=== PATIENT | male | born 1955 | race Caucasian/White ===

== ENCOUNTER → 2019-11-05 17:52 | Outpatient (CLI) | payer OTHER, SELFPAY | PROVIDERS: PCP Family Medicine; Referring Provider Family Medicine; Visit Provider Family Medicine | DX: Z11.59 Encounter for screening for other viral diseases (principal) | CPT/HCPCS: 87635; G2023; U0003 ==

== ENCOUNTER 2024-05-16 08:26 | Day surgery (SDC) | payer MEDICARE, SELFPAY ==
[2024-05-16] VITALS (8 sets, daily range): BP systolic 104–143; BP diastolic 72–85; PULSE 63–76; RESP 16–18; TEMP 36.4–36.5; O2SAT 94–97; BMI 31.7
--- NOTE | 2024-05-16 | COLBX_PTH ---
PATIENT: ROSA HARRY LOC: EN U#:[id number] AGE/SX: 69/M ROOM: RE05/16/[address]: Dr. Ezra Dempsey DO : 1955 BED: DIS: 05/16/2024 SPEC #: [id number] RECD: 05/16/24 13:06 STATUS: ARRON ELDER #: [id number] [place]: 05/16/24 00:[address]: Ezra Dempsey DEPT: SURGICAL PATHOLOGY RECD BY: Hero Dumas ENTERED: 05/16/24 13:07 SP TYPE: COLON BX OTHR DR: Antonio Marrero, MINING ENGINEER-C Tissues: A - Cecum, NOS B - Cecum, NOS Procedures: Surgery Specimen Level IV HEADER OPERATION: Colonoscopy biopsy, polypectomy PRE-OP DIAGNOSIS: Encounter for screening for malignant neoplasm of colon TISSUE SUBMITTED: A- Cecal polyp biopsy, B- Cecal polyp MICROSCOPIC DIAGNOSIS A. Cecal polyp, biopsy: Fragments of tubular adenoma. B. Cecal polyp, polypectomy: Fragments of hyperplastic polyp. SJ.mr 05/17/2024 MICROSCOPIC DESCRIPTION Slides are reviewed. GROSS DESCRIPTION A. Received in fixative is one container labeled with the patient's name and designated Cecal polyp biopsy. The specimen consists of two irregular fragments of light bar soft tissue that in aggregate measure 0.7 x 0.2 x 0.2 cm. The specimen is totally submitted in one cassette. B. Received in fixative is one container labeled with the patient's name and designated Cecal polyp. The specimen consists of multiple irregular fragments of light bar soft tissue that in aggregate measure 1.6 x 0.4 x 0.3 cm. The specimen is totally submitted in one cassette. MODEST[place].mr 05/16/2024 TC:1 CPT:89021c5
--- NOTE | 2024-05-16 09:03 | PCM.PRE.AN2 ---
ASA Classification* ASA Classification ASA Classification: 2 Assessment & Plan Anesthesia* Anesthesia Assessment Anesthesia Assessment: Discussed sedation and/or anesthesia options, risks, benefits, and alternatives with patient/parents/legal guardian/POA. Questions invited. The patient/parents/legal guardian/POA seems to understand and agrees to proceed with anesthesia plan. Reviewed the physical assessment, medical history, allergy history and patient home medications list prior to surgery/procedure/anesthetic and documented any changes. Performed airway and anesthesia risk assessments. 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 When Was Last Pacemaker Check QUESTION #4 FULL TEXT: You/Your Family Experience fever (hyperthermia) with Anesthesia Last Oral Intake Last Oral intake: Last Oral Intake NPO since 05:00 05/16/24 08:52 Meds taken in AM with sips of No 05/16/24 08:52 water? Meds patient instructed to take am of surgery PONV PONV - service restorer emergency: PONV - service restorer emergency Female No 05/14/24 13:44 HX of Motion Sickness No 05/14/24 13:44 HX of N/V After Surgery No 05/14/24 13:44 Non-Smoker Yes 05/14/24 13:44 Duration of Surgery greater No 05/14/24 13:44 than 60 minutes Number of Risk Factors 1 05/14/24 13:44 PONV Score Low Risk 05/14/24 13:44 Height & Weight Height & Weight: Anesthesia: Height & Weight Height 5 ft 7 in 05/16/24 08:52 Weight: 92 kg 05/16/24 08:52 Body Mass Index (BMI) 31.7 05/16/24 08:52 Respiratory Assessment Respiratory Assessment - service restorer emergency: Respiratory Tract Infection Hx - service restorer emergency Hx Respiratory Tract Infection No 05/14/24 13:44 STOP Sleep Apnea STOP Sleep Apnea - service restorer emergency: STOP Sleep Apnea - service restorer emergency Hx Hypertension No 05/14/24 13:44 Hx Sleep Apnea No 05/14/24 13:44 CPAP BIPAP Do you snore loudly (louder No 05/14/24 13:44 than talking or can be heard Do you often feel tired/ No 05/14/24 13:44 fatigued/ sleepy during daytime? Has anyone observed you stop No 05/14/24 13:44 breathing during sleep? STOP Results Negative 05/14/24 13:44 QUESTION #5 FULL TEXT : Do you snore loudly (louder than talking or can be heard through closed doors)? 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 Specify any problems Hx of Preganancy in last 3 N/A 05/14/24 13:44 Months Nurse Filling Out Transfusion DSCHRIBER 05/14/24 13:44 & Questions: Date: 05/14/24 05/14/24 13:44 Time: 13:45 05/14/24 13:44 Patient unable to answer at this time (ie. confused, unrespo /Reproduction History /Reproductive History - service restorer emergency: /Reproductive Hx- service restorer emergency Hx Now No 05/14/24 13:44 Gestational Age (in weeks): EDC: Hx Hx Para Hx Section SAB No 05/14/24 13:44 [facility] Medical History Tinnitus of right ear Loss of hearing Wears glasses Alcohol use Arthritis Fatty liver Back pain Vertigo History of diverticulitis Heartburn Cigar smoker History of pain when walking Leg cramps GERD (gastroesophageal reflux disease) Personal history of colonic polyps Home Medications ?Medication ?Instructions ?Recorded ?Last Taken ?Type desloratadine 5 mg tablet 5 mg PO QDAY PRN allergy symptoms 03/09/24 Unknown History (Clarinex) epinephrine 0.3 mg/0.3 mL 0.3 mg IM ONCE 03/09/24 Unknown History injection, auto-injector (EpiPen) ascorbic acid (vitamin C) 1,000 mg 1,000 mg PO DAILY 05/14/24 Unknown History tablet,extended release (C Complex) saw palmetto 450 mg capsule 450 mg PO DAILY 05/14/24 Unknown History Allergy/AdvReac Type Severity Reaction Status Date / Time hornet venom Allergy Severe Anaphylaxis Verified 05/16/24 08:51 dog dander AdvReac Intermediate Other Verified 05/16/24 08:51 feathers AdvReac Intermediate Other Verified 05/16/24 08:51 Sulfa (Sulfonamide AdvReac Intermediate Nausea/Vom/ Verified 05/16/24 08:51 Antibiotics) (sulfa drugs) Diarrhea Surgical History (Updated 05/14/24 @ 13:50 by Lani Judd) History of wisdom tooth extraction History of meniscectomy of right knee Hx of vasectomy History of esophagogastroduodenoscopy Hx of colonoscopy Social History (Updated 03/09/24 @ 08:22 by Tracey Pinzon) household members: spouse current occupational status: retired Smoking Status: Current some day smoker tobacco type: cigars alcohol intake: current alcohol intake frequency: a few times a week substance use type: does not use Review of Systems (Anesthesia) ROS Narrative System reviewed and no additional complaints, except as documented.
--- NOTE | 2024-05-16 09:55 | PCM.HP.STD ---
HPI - General General Date of Admission: 05/16/24 Date of Service: 05/16/24 Chief Complaint: History of polyps HPI Narrative ROSA HARRY, is a 69 M who presents today for surveillance colonoscopy. His last colonoscopy back in 2019 where he had a couple adenomatous polyps removed. He is not having any abdominal pain, cramping, chest pain or shortness of breath. Overall he is in pretty good health. [facility] Medical History Tinnitus of right ear Loss of hearing Wears glasses Alcohol use Arthritis Fatty liver Back pain Vertigo History of diverticulitis Heartburn Cigar smoker History of pain when walking Leg cramps GERD (gastroesophageal reflux disease) Personal history of colonic polyps Home Medications ?Medication ?Instructions ?Recorded ?Last Taken ?Type desloratadine 5 mg tablet 5 mg PO QDAY PRN allergy symptoms 03/09/24 Unknown History (Clarinex) epinephrine 0.3 mg/0.3 mL 0.3 mg IM ONCE 03/09/24 Unknown History injection, auto-injector (EpiPen) ascorbic acid (vitamin C) 1,000 mg 1,000 mg PO DAILY 05/14/24 Unknown History tablet,extended release (C Complex) saw palmetto 450 mg capsule 450 mg PO DAILY 05/14/24 Unknown History Allergy/AdvReac Type Severity Reaction Status Date / Time hornet venom Allergy Severe Anaphylaxis Verified 05/16/24 08:51 dog dander AdvReac Intermediate Other Verified 05/16/24 08:51 feathers AdvReac Intermediate Other Verified 05/16/24 08:51 Sulfa (Sulfonamide AdvReac Intermediate Nausea/Vom/ Verified 05/16/24 08:51 Antibiotics) (sulfa drugs) Diarrhea Surgical History History of wisdom tooth extraction History of meniscectomy of right knee Hx of vasectomy History of esophagogastroduodenoscopy Hx of colonoscopy Social History household members: spouse current occupational status: retired Smoking Status: Current some day smoker tobacco type: cigars alcohol intake: current alcohol intake frequency: a few times a week substance use type: does not use ROS Constitutional Constitutional: Denies fatigue, fever(s), poor appetite, weight gain or weight loss Gastrointestinal Gastrointestinal: Denies belching, bloating, change in bowel habits, change in stool character, chewing difficulty, coffee ground emesis, constipation, cramping, diarrhea, dyspepsia, dysphagia, early satiety, excessive flatus, fecal incontinence, heartburn, hematemesis, hematochezia, hemorrhoids, loose stools, melena, nausea, odynophagia, rectal bleeding, tenesmus, vomiting or weight changes Vital Signs Vital Signs Vital Signs: 05/16/24 08:52 05/16/24 08:52 05/16/24 09:05 Temperature 97.6 F L 97.6 F L Temperature Source Temporal Pulse Rate 75 75 Respiratory Rate 18 18 Respiratory Pattern Normal Blood Pressure 143/85 H 143/85 H Blood Pressure Mean 104 Blood Pressure Source Monitor Blood Pressure Position Sitting Blood Pressure Location Left Arm Pulse Ox 97 97 Oxygen Delivery Method Room Air Room Air Weight Weight: 202 lb 13.204 oz Body Mass Index (BMI) 31.7 Physical Exam Const alert, oriented x3, no apparent distress and healthy appearing General Appearance: cooperative GI normal to inspection, nondistended, normoactive bowel sounds, soft to palpation, non-tender and non-distended Percussion: normal to percussion Rectal Exam: deferred Assessment & Plan Assessment/Plan (1) Encounter for screening for malignant neoplasm of colon: PLAN: He was explained alternative, risk, benefits include not withstanding bleeding, infection, sepsis, perforation, need for emergent urgent . He will have an ASA 3.
--- NOTE | 2024-05-16 10:27 | OP.COLON_ITS ---
Patient Name: Tristin Baird Procedure Date: 05/16/2024 10:00 AM Date of : 1955 Age: 69 Procedure: Colonoscopy Indications: High risk colon cancer surveillance: Personal history of colonic polyps Providers: Ezra Dempsey DO Referring MD: Cale Pinzon Medicines: Monitored Anesthesia Care Patient Profile: This is a 69 year old male. Refer to note in patient chart for documentation of history and physical. Last Colonoscopy: several years ago. Complications: No immediate complications. Procedure: Pre-Anesthesia Assessment: - Prior to the procedure, a History and Physical was performed, and patient medications and allergies were reviewed. The patient is competent. The risks and benefits of the procedure and the sedation options and risks were discussed with the patient. All questions were answered and informed consent was obtained. Patient identification and proposed procedure were verified by the physician in the pre-procedure area. Mental Status Examination: alert and oriented. Airway Examination: normal oropharyngeal airway and neck mobility. Respiratory Examination: clear to auscultation. CV Examination: normal. Prophylactic Antibiotics: The patient does not require prophylactic antibiotics. Prior Anticoagulants: The patient has taken no anticoagulant or antiplatelet agents except for NSAID medication. ASA Grade Assessment: II - A patient with mild systemic disease. After reviewing the risks and benefits, the patient was deemed in satisfactory condition to undergo the procedure. The anesthesia plan was to use monitored anesthesia care (MAC). Immediately prior to administration of medications, the patient was re-assessed for adequacy to receive sedatives. The heart rate, respiratory rate, oxygen saturations, blood pressure, adequacy of pulmonary ventilation, and response to care were monitored throughout the procedure. The physical status of the patient was re-assessed after the procedure. After I obtained informed consent, the scope was passed under direct vision. Throughout the procedure, the patient's blood pressure, pulse, and oxygen saturations were monitored continuously. The Colonoscope was introduced through the anus and advanced to the cecum, identified by appendiceal orifice and ileocecal valve. The colonoscopy was performed without difficulty. The patient tolerated the procedure well. The quality of the bowel preparation was adequate. The ileocecal valve, appendiceal orifice, and rectum were photographed. Scope In: 10:07:55 AM Scope Withdrawal Time 0 hours 11 minutes 10 seconds Scope Out: 10:21:32 AM Total Procedure Duration Time 0 hours 13 minutes 37 seconds Findings: The perianal and digital rectal examinations were normal. Multiple small and large-mouthed diverticula were found in the recto-sigmoid colon, sigmoid colon, descending colon, ascending colon and cecum. Two sessile polyps were found in the cecum. The polyps were 7 mm in size. These polyps were removed with a jumbo cold forceps. Resection and retrieval were complete. Verification of patient identification for the specimen was done. Estimated blood loss was minimal. A 9 mm polyp was found in the cecum. The polyp was sessile. The polyp was removed with a hot snare. Resection and retrieval were complete. Verification of patient identification for the specimen was done. Estimated blood loss was minimal. Internal hemorrhoids were found during retroflexion. The hemorrhoids were Grade II (internal hemorrhoids that prolapse but reduce spontaneously). Impression: - Diverticulosis in the recto-sigmoid colon, in the sigmoid colon, in the descending colon, in the ascending colon and in the cecum. - Two 7 mm polyps in the cecum, removed with a jumbo cold forceps. Resected and retrieved. - One 9 mm polyp in the cecum, removed with a hot snare. Resected and retrieved. - Internal hemorrhoids. Recommendation: - Repeat colonoscopy in 5 years for surveillance. - Continue present medications. Procedure Code(s): --- Professional --- 13069, Colonoscopy, flexible; with removal of tumor(s), polyp(s), or other lesion(s) by snare technique 10870, 59, Colonoscopy, flexible; with biopsy, single or multiple CPT copyright 2021 [employer]. All rights reserved. The codes documented in this report are preliminary and upon can top setter review may be revised to meet current compliance requirements. Ezra Dempsey DO 05/16/2024 10:26:37 AM This report has been signed electronically. Number of Addenda: 0 Note Initiated On: 05/16/2024 10:00 AM
--- NOTE | 2024-05-16 10:27 | OP.CCLET_ITS ---
05/16/2024 Cale Pinzon Re : Colonoscopy procedure for Tristin Baird Johnny Marrero This procedure was performed on Thursday, May 16, 2024. My impressions and recommendations are as follows: Impressions : - Diverticulosis in the recto-sigmoid colon, in the sigmoid colon, in the descending colon, in the ascending colon and in the cecum. - Two 7 mm polyps in the cecum, removed with a jumbo cold forceps. Resected and retrieved. - One 9 mm polyp in the cecum, removed with a hot snare. Resected and retrieved. - Internal hemorrhoids. Recommendations : - Repeat colonoscopy in 5 years for surveillance. - Continue present medications. My findings are described in the full procedure note, which is enclosed. If I can be of further assistance, please feel free to contact me at . Sincerely, Ezra Dempsey, 05/16/2024 10:26:37 AM This report has been signed electronically.
--- NOTE | 2024-05-16 10:32 | PCM.POST.ANE ---
Anesthesia: Postop Eval I Current Vital Signs Temperature: 97.5 F Pulse Rate: 76 Blood Pressure: 104/79 Respiratory Rate: 16 Pulse Ox: 95 Oxygen Delivery Method: Room Air Assessment Airway patent: Yes Spontaneous unlabored respirations: Yes Mental status: Asleep nausea: No Vomiting: No Anesthesia Complication: No Fluid Hydration Crystalloid volume administer (ml): 40 Total IV fluid infused: 40 Progress Note Anesthesia document: Postop Eval 1 completed: Yes
--- NOTE | 2024-05-16 13:24 | PCM.POSTANE2 ---
Anesthesia Postop Eval I Sum Postop Eval Completion status Anesthesia document: Postop Eval 1 completed: Yes Anesthesia Postop Eval I Summary Anesthesia Postop Eval I Summary: Anesthesia Postop Eval I: Assessment Summary Airway patent Yes 05/16/24 10:33 [email or web address] Spontaneous unlabored Yes 05/16/24 10:33 [email or web address] respirations Mental status Asleep 05/16/24 10:33 [email or web address] nausea No 05/16/24 10:33 [email or web address] Vomiting No 05/16/24 10:33 [email or web address] Anesthesia Postop Eval I: Fluid Summary Crystalloid volume administer 40 05/16/24 10:33 [email or web address] (ml) Colloids volume administered ( ml) Blood Product volume administered (ml) Total IV fluid infused 40 05/16/24 10:33 [email or web address] Anesthesia Postop Eval I: Summary Notes Anesthesia Complication No 05/16/24 10:33 [email or web address] Anesthesia Complication Comment: Post-operative progress note Anesthesia: Postop Eval II Evaluation Mental status: Awake Pain Level: 0 nausea: No Vomiting: No Complications Anesthesia Complication: No
== END 2024-05-16 11:16 | disposition home or self-care (01) ==
LOC: EN 08:27 → AC 08:29
PROVIDERS: PCP Nurse Practitioner Primary Care; Referring Provider Nurse Practitioner Primary Care; Visit Provider Internal Medicine Gastroenterology
PROC: 0DJD8ZZ Inspection of Lower Intestinal Tract, Via Natural or Artificial Opening Endoscopic (ICD-10-PCS; CPT 45378; principal; 2024-05-16 09:25)
DX: Z12.11 Encounter for screening for malignant neoplasm of colon (principal); K64.1 Second degree hemorrhoids; Z86.0100 Personal history of colon polyps, unspecified; K57.30 Diverticulosis of large intestine without perforation or abscess without bleeding; Z98.52 Vasectomy status; F17.290 Nicotine dependence, other tobacco product, uncomplicated; D12.0 Benign neoplasm of cecum
CPT/HCPCS: 45385; 45380; 88305; A4216; J2405